=== PATIENT | female | born 1940 | race Caucasian/White ===

== ENCOUNTER 2017-02-07 14:11 | Emergency (ER) | payer OTHER, BC ==
[~2017-02-07] VITALS: Ht 154.9 cm; Wt 70.4 kg
[~2017-02-07 14:11] MED LIST: GUANFACINE HCL2 MG PO; PERCOCET 5/31 TABLET PO
[2017-02-07 15:24] LABS: INTER. NORMALIZED RATIO 2.3; PROTHROMBIN TIME 24.5 (9.2-11.2)
[2017-02-07 19:05] VITALS: BP 176/88
== END 2017-02-07 19:05 | disposition home or self-care (01) ==
LOC: EME 14:11
PROVIDERS: Emergency Medicine
DX: S02.2XXA Fracture of nasal bones, initial encounter for closed fracture (principal); S01.21XA Laceration without foreign body of nose, initial encounter; S00.03XA Contusion of scalp, initial encounter; S80.12XA Contusion of left lower leg, initial encounter; R04.0 Epistaxis; M25.531 Pain in right wrist; W01.10XA Fall on same level from slipping, tripping and stumbling with subsequent striking against unspecified object, initial encounter; Y92.511 Restaurant or cafe as the place of occurrence of the external cause; Z23 Encounter for immunization; Z79.01 Long term (current) use of anticoagulants; Z86.718 Personal history of other venous thrombosis and embolism; I10 Essential (primary) hypertension; Z87.891 Personal history of nicotine dependence
CPT/HCPCS: 70450; 73110; 85610; 99281; 99285

== ENCOUNTER 2017-02-08 07:42 | Emergency (ER) | payer OTHER, BC ==
[~2017-02-08] VITALS: Ht 152.4 cm; Wt 70.4 kg
[2017-02-08 09:46] VITALS: BP 149/71
== END 2017-02-08 10:00 | disposition home or self-care (01) ==
LOC: EME 07:42
DX: S00.83XA Contusion of other part of head, initial encounter (principal); S02.2XXA Fracture of nasal bones, initial encounter for closed fracture; S80.12XA Contusion of left lower leg, initial encounter; W19.XXXA Unspecified fall, initial encounter; R51 Headache; R42 Dizziness and giddiness; I10 Essential (primary) hypertension; J45.909 Unspecified asthma, uncomplicated; M81.0 Age-related osteoporosis without current pathological fracture; Z86.718 Personal history of other venous thrombosis and embolism; Z79.01 Long term (current) use of anticoagulants
CPT/HCPCS: 70450; 73590; 99281; 99285